=== PATIENT | male | born 1995 | race Caucasian/White ===

== ENCOUNTER 2017-02-18 12:15 | Emergency (ER) | payer OTHER ==
[~2017-02-18] VITALS: Ht 172.7 cm; Wt 69.1 kg
[2017-02-18] MEDS ORDERED: zoloft (12:30)
[2017-02-18 17:12] VITALS: BP 152/98
== END 2017-02-18 17:14 | disposition home or self-care (01) ==
LOC: M ED 12:15
DX: F43.0 Acute stress reaction (principal); Z79.899 Other long term (current) drug therapy

== ENCOUNTER 2017-02-26 05:44 | Emergency (ER) | payer OTHER ==
[~2017-02-26] VITALS: Ht 175.3 cm; Wt 77.0 kg
[~2017-02-26 05:44] MED LIST: zoloft
[2017-02-26 06:13] LABS: MEAN CORPUSCULAR HEMOGLOBIN 30.3 pg (27.0-33.0); MEAN CORPUSCULAR HGB CONC 34.2 g/dl (32.0-36.5); MEAN CORPUSCULAR VOLUME 88.6 fl (80.0-96.0); RED CELL DISTRIBUTION WIDTH 12.5 % (11.5-14.5)
[2017-02-26 06:31] LABS: ALBUMIN 4.3 GM/DL (3.2-5.2); ALKALINE PHOSPHATASE 81 U/L (45-117); ALT/SGPT 16 U/L (12-78); ANION GAP 9 MEQ/L (8-16); AST/SGOT 11 U/L (15-37); BILIRUBIN,DIRECT 0.2 MG/DL (0.0-0.2); BILIRUBIN,TOTAL 0.6 MG/DL (0.2-1.0); BLOOD UREA NITROGEN 9 MG/DL (7-18); CALCIUM LEVEL 8.9 MG/DL (8.5-10.1); CARBON DIOXIDE LEVEL 25 MEQ/L (21-32); CHLORIDE LEVEL 109 MEQ/L (98-107); CREATININE FOR GFR 0.96 MG/DL (0.70-1.30); GLUCOSE, FASTING 89 MG/DL (70-105); POTASSIUM SERUM 3.8 MEQ/L (3.5-5.1); SODIUM LEVEL 143 MEQ/L (136-145); TOTAL PROTEIN 7.6 GM/DL (6.4-8.2)
[2017-02-26 07:12] LABS: METHADONE URINE NEGATIVE (NEGATIVE)
[2017-02-26] MEDS ORDERED: NS 1,000 ML IV ONE (07:45)
--- NOTE | 2017-02-26 08:51 | ECGEPIP ---
Stationary ECG Study [facility] - ED Test Date: 2017-02-26 Pat Name: CORETTA ARIAS Department: Room: - Gender: M Report Writer: murray : 1995 Requested By: CORETTA Malcolm Order Number: [id number] Reading MD: Tara Adam Measurements Intervals [place] Rate: 100 P: 73 VT: 131 QRS: 69 QRSD: 112 T: 31 QT: 351 QTc: 453 Interpretive Statements SINUS TACHYCARDIA MODERATE INTRAVENTRICULAR CONDUCTION DELAY TALL T-WAVES, SUGGESTS HYPERKALEMIA, EARLY REPOLARIZATION NO PRIOR FOR COMPARISON Electronically Signed On 02-26-2017 8:51:16 EDT by Tara Adam
[2017-02-26] MEDS ORDERED: SODIUM BICARBONATE 8.4% INJ 50 ML SYRINGE IV STA (12:56)
[2017-02-26 14:01] VITALS: BP 112/72
--- NOTE | 2017-02-27 08:11 | ECGEPIP ---
Stationary ECG Study [facility] - ED Test Date: 2017-02-26 Pat Name: CORETTA ARIAS Department: Room: - Gender: M Janitor Custodian: rn : 1995 Requested By: KAIA Velázquez Order Number: [id number] Reading MD: Tara Adam Measurements Intervals [place] Rate: 75 P: 64 MA: 133 QRS: 57 QRSD: 112 T: 52 QT: 396 QTc: 444 Interpretive Statements SINUS RHYTHM MODERATE INTRAVENTRICULAR CONDUCTION DELAY PROBABLE EARLY REPOLARIZATION, CLINICAL CORRELATION DECREASED RATE 02/26/17 6:09 Electronically Signed On 02-27-2017 8:11:10 EDT by Tara Adam
--- NOTE | 2017-02-27 08:13 | ECGEPIP ---
Stationary ECG Study [facility] - ED Test Date: 2017-02-26 Pat Name: CORETTA ARIAS Department: Room: - Gender: M Plant Operator Helper: rn : 1995 Requested By: KAIA Velázquez Order Number: [id number] Reading MD: Tara Adam Measurements Intervals [place] Rate: 68 P: 70 CO: 134 QRS: 78 QRSD: 121 T: 59 QT: 408 QTc: 436 Interpretive Statements SINUS RHYTHM MODERATE INTRAVENTRICULAR CONDUCTION DELAY NSTTW ABNORMALITY SIMILAR 02/26/17 11:56 Electronically Signed On 02-27-2017 8:12:56 EDT by Tara Adam
== END 2017-02-26 14:25 | disposition home or self-care (01) ==
LOC: EDBD 05:44 → M ED 05:44
DX: R41.82 Altered mental status, unspecified (principal)
CPT/HCPCS: 36415; 80048; 80076; 80307; 84443; 85027; 93005; 93041; 94760; 96361; 96374; 99285; G0480

== ENCOUNTER 2017-06-07 03:06 | Inpatient (IN) | payer OTHER ==
[~2017-06-07] VITALS: Ht 172.7 cm; Wt 66.0 kg
[~2017-06-07 03:06] MED LIST changes: +UNRESOLVED CLARIFICATION ENTRY XX SCH
[2017-06-07 03:29] LABS: BASO # 0.1 10^3/uL (0.0-0.2); BASO % 0.4 % (0.0-1.0); EOS % 0.2 % (0.0-3.0); IMMATURE GRANULOCYTE % 0.3 % (0-0); LYMPH # 2.4 10^3/uL (1.5-6.5); LYMPH % 13.9 % (24.0-44.0); MEAN CORPUSCULAR HEMOGLOBIN 29.5 pg (27.0-33.0); MEAN CORPUSCULAR HGB CONC 33.8 g/dl (32.0-36.5); MEAN CORPUSCULAR VOLUME 87.2 fl (80.0-96.0); MONO # 0.9 10^3/uL (0.0-0.8); MONO % 5.1 % (0.0-5.0); NEUTROPHILS # 13.7 10^3/uL (1.8-7.7); NEUTROPHILS % 80.1 % (36.0-66.0); RED CELL DISTRIBUTION WIDTH 12.6 % (11.5-14.5); WHITE BLOOD COUNT 17.1 10^3/uL (4.0-10.0)
[2017-06-07 03:56] LABS: ALBUMIN/GLOBULIN RATIO 1.21 (1.00-1.93); ALKALINE PHOSPHATASE 77 U/L (45-117); ALT/SGPT 22 U/L (12-78); ANION GAP 9 MEQ/L (8-16); AST/SGOT 15 U/L (7-37); BILIRUBIN,DIRECT 0.2 MG/DL (0.0-0.2); BILIRUBIN,TOTAL 0.7 MG/DL (0.2-1.0); BLOOD UREA NITROGEN 8 MG/DL (7-18); CALCIUM LEVEL 9.1 MG/DL (8.5-10.1); CARBON DIOXIDE LEVEL 27 MEQ/L (21-32); CHLORIDE LEVEL 106 MEQ/L (98-107); CREATININE FOR GFR 0.94 MG/DL (0.70-1.30); GLUCOSE, FASTING 93 MG/DL (70-105); POTASSIUM SERUM 3.8 MEQ/L (3.5-5.1); SODIUM LEVEL 142 MEQ/L (136-145); TOTAL PROTEIN 7.3 GM/DL (6.4-8.2)
[2017-06-07 04:00] LABS: PLT CLUMPS? POS FLAG; POS COUNT POS FLAG; SUSPECT SAMPLE POS FLAG
[2017-06-07 04:05] LABS: METHADONE URINE NEGATIVE (NEGATIVE)
[2017-06-07] MEDS ORDERED: NS 1,000 ML IV ONE ×2 (04:30→07:45)
[2017-06-07] MEDS ORDERED: NICOTINE 21MG/24HR 1 EA TRANSDERMAL TD ONE (05:15)
[2017-06-07 07:57] LABS: MICROSCOPIC INDICATED? MAN YES (NO)
[2017-06-07 07:58] LABS: BACTERIA, URINE NONE SEEN; HYALINE CAST, URINE NONE SEEN /lpf (0-1); MICROSCOPIC EXAM PERFORMED; RBC, URINE 0-1 /hpf (0-3); SQUAMOUS EPITHELIAL CELL URINE NONE SEEN /hpf (SMALL AMT)
[2017-06-07 09:07] LABS: BASO # 0.1 10^3/uL (0.0-0.2); BASO % 0.5 % (0.0-1.0); EOS # 0.1 10^3/uL (0.0-0.50); EOS % 1.2 % (0.0-3.0); IMMATURE GRANULOCYTE % 0.3 % (0-0); LYMPH % 30.6 % (24.0-44.0); MEAN CORPUSCULAR HEMOGLOBIN 29.7 pg (27.0-33.0); MEAN CORPUSCULAR HGB CONC 33.7 g/dl (32.0-36.5); MEAN CORPUSCULAR VOLUME 88.3 fl (80.0-96.0); MONO # 0.8 10^3/uL (0.0-0.8); MONO % 7.8 % (0.0-5.0); NEUTROPHILS # 5.8 10^3/uL (1.8-7.7); NEUTROPHILS % 59.6 % (36.0-66.0); RED CELL DISTRIBUTION WIDTH 12.9 % (11.5-14.5); WHITE BLOOD COUNT 9.8 10^3/uL (4.0-10.0)
--- NOTE | 2017-06-07 09:22 | ECGEPIP ---
Stationary ECG Study [facility] - ED Test Date: 2017-06-07 Pat Name: CORETTA ARIAS Department: Room: - Gender: M Deportation Examiner: KAYLA : 1995 Requested By: CORETTA Malcolm Order Number: [id number] Reading MD: Ezequiel Jones Measurements Intervals [place] Rate: 90 P: 76 WA: 108 QRS: 71 QRSD: 107 T: 51 QT: 358 QTc: 438 Interpretive Statements SINUS RHYTHM WITH SHORT WA INTERVAL POSSIBLE LEFT ATRIAL ENLARGEMENT INCOMPLETE RIGHT BUNDLE BRANCH BLOCK BENIGN EARLY REPOLARIZATION SIMILAR TO 02/26/17 Electronically Signed On 06-07-2017 9:22:16 EST by Ezequiel Jones
[2017-06-07 09:24] LABS: PLT CLUMPS? POS FLAG; POS COUNT POS FLAG
[2017-06-07 09:25] LABS: ADD MORPHOLOGY? YES
[2017-06-07 09:26] LABS: PLATELET CLUMPS LARGE AMT
[2017-06-07] MEDS ORDERED: OLANZapine 5 MG TAB PO PRN (11:15)
[2017-06-07] MEDS ORDERED: MOM 30ML SUSPENSION UDC PO PRN (11:15)
[2017-06-07] MEDS ORDERED: MAALOX 30 ML SUSP *UDC PO PRN (11:15)
[2017-06-07 12:42] VITALS: BP 149/100
[2017-06-07 18:06] VITALS: BP 119/73
[2017-06-07] MEDS: QUEtiapine FUMARATE 25 MG TAB PO PRN (23:07)
[2017-06-08 06:44] VITALS: BP 130/78
[2017-06-08] MEDS: NICOTINE 21MG/24HR 1 EA TRANSDERMAL TD SCH (08:04)
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
[2017-06-08] MEDS: ACETAMINOPHEN TAB 650MG DOSE (2X325MG) PO PRN ×2 (09:49→16:56)
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
[2017-06-08] MEDS: OLANZapine 5 MG TAB PO PRN (14:14)
[2017-06-08 18:00] VITALS: BP 138/71
[2017-06-08] MEDS: QUEtiapine FUMARATE 25 MG TAB PO PRN (22:05)
[2017-06-09 06:42] VITALS: BP 109/78
[2017-06-09] MEDS: OLANZapine 5 MG TAB PO PRN ×3 (08:33→21:14)
[2017-06-09] MEDS: ACETAMINOPHEN TAB 650MG DOSE (2X325MG) PO PRN (08:34)
[2017-06-09] MEDS: NICOTINE 21MG/24HR 1 EA TRANSDERMAL TD SCH (08:35)
[2017-06-09 18:00] VITALS: BP 122/74
--- NOTE | 2017-06-09 20:04 | MHIPNPDOC ---
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 He reports being dissatisfied with the and feels he will be leaving soon, possibly in Jul. He reports "lots of stressors" contributing to his depression and uses drugs and OTC cough syrup as a coping tool. He states he drinks Robitussin in order to dissociate and to prevent himself from committing suicide. Last night, after consuming 2 bottles of cough syrup pt says he spent hours outside building a snowman, but came in after he became concerned he might develop hypothermia. Pt says he then sat staring at some knives before picking one up and contemplating killing himself with it. He instead called 911 and requested to be brought to the ER. Stressors include recent (one month ago) of his grandfather in [place] and being unable to visit him before he . He also broke up with his GF about 2 months ago. Pt says he has been isolating self because he feels shame at letting others down, and also feels he pushed his GF away, saying "I know I was toxic to her." He is prescribed Prozac by the clinic but does not always take it as prescribed. He has been abusing cough syrup and other drugs since around Aug 2016. Pt denies any admissions to psych unit. Denies attempting suicide other goodrich taking large amounts of cough syrup in order to not deal with his feelings. Pt remains suicidal at this time, unable to CFS, saying he continues to have those thoughts and is not sure what would happen to him if he doesn't control the thoughts with drugs.P VITAL SIGNS: See below. NEW TEST RESULTS: . CURRENT MEDICATIONS: See below. MENTAL STATUS EXAMINATION: Patient is a 12-year old male, who is alert, mildly cooperative, dressed in hospital clothes, sleepy, laying in bed, with poor eye contact Speech: Is poor (patient is very sleepy) Language skills are limited at this time. Thought processes including: Intact. Thought content: Focused on his medications Abstract reasoning, and computation: Not assessed at this time. Description of associations: Fair. Description of abnormal or psychotic thoughts: Denies SI/Hi, A/V hallucinations. Judgment: Limited. Insight: Limited. Orientation: Not assessed at this time. Patient is half asleep. Recent and remote memory: Not assessed at this time. Attention span and concentration: Poor. Patient is half asleep Language: Poor. Patient is half asleep. Fund of knowledge: Not assessed at this time. Patient is half asleep" Mood: "I slept better. My depression is 5/10" Affect: Coongruent with mood. DIAGNOSES: 1. Unspecified Bipolar D/O. 2. Drug induced mood d/o. 3. Polysubstance use d/o. ASSESSMENT:Patient is extremely sleepy, laying on his bed, possibly because he had not slept in the previous days. Will f/u/ MANAGEMENT PLAN: Will continue with the same meds. TIME SPENT: 20 minutes. Vital Signs Vital Signs Date Time Temp Pulse Resp B/P (MAP) Pulse Ox O2 Delivery O2 Flow Rate FiO2 06/09/17 18:00 97.5 64 16 122/74 (90) 06/09/17 06:42 Room Air 06/07/17 12:42 98 Current Medications Current Medications Acetaminophen (Tylenol Tab) 650 mg Q6HP PRN PO HEADACHE or DISCOMFORT Last administered on 06/09/17 08:34; Start 06/07/17 at 11:15; Stop 07/07/17 at 11 :14 Al Hydrox/Mg Hydrox/Simethicone (Mylanta) 30 ml Q4HP PRN PO HEARTBURN/ INDIGESTION; Start 06/07/17 at 11:15; Stop 07/07/17 at 11:14 Magnesium Hydroxide (Milk Of Magnesia) 30 ml DAILYPRN PRN PO CONSTIPATION; Start 06/07/17 at 11:15; Stop 07/07/17 at 11:14 Miscellaneous (Unresolved Clarification Entry) SEE LABEL COMMENTS UNRESOLVED XX ; Start 06/07/17 at 00:01; Stop 06/07/17 at 17:27; Status DC Nicotine (Nicoderm Cq 21mg) 1 patch DAILY TD Last administered on 06/09/17 08 :35; Start 06/08/17 at 09:00; Stop 07/08/17 at 08:59 Olanzapine (ZyPREXA) 5 mg Q4HP PRN PO ANXIETY/AGITATION; Start 06/07/17 at 11: 15; Stop 06/08/17 at 14:07; Status DC Olanzapine (ZyPREXA) 5 mg Q6HP PRN PO ANXIETY/AGITATION Last administered on 15:03; Start 06/08/17 at 14:15; Stop 07/07/17 at 11:14 Quetiapine Fumarate (SEROquel) 75 mg QHSP PRN PO INSOMNIA Last administered on 06/08/17 22:05; Start 06/07/17 at 11:15; Stop 07/07/17 at 11:14 Allergies Coded Allergies: No Known Allergies (Unverified , 06/07/17) URMILA ARRIOLA MD Jun 09, 2017 20:04
[2017-06-09] MEDS: QUEtiapine FUMARATE 25 MG TAB PO PRN (22:02)
[2017-06-10 06:44] VITALS: BP 115/65
[2017-06-10] MEDS: OLANZapine 5 MG TAB PO PRN ×2 (07:55→14:40)
[2017-06-10] MEDS: NICOTINE 21MG/24HR 1 EA TRANSDERMAL TD SCH (07:56)
[2017-06-10] MEDS ORDERED: INFLUENZA QUADRIVALENT PF VACCINE 0.5ML SYRINGE (90686) IM ONE (09:00)
[2017-06-10] MEDS: ACETAMINOPHEN TAB 650MG DOSE (2X325MG) PO PRN ×2 (12:06→17:12)
--- NOTE | 2017-06-10 12:06 | MHIPNPDOC ---
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 He reports "lots of stressors" contributing to his depression and uses drugs and OTC cough syrup as a coping tool. He states he drinks Robitussin in order to dissociate and to prevent himself from committing suicide. Last night, after consuming 2 bottles of cough syrup pt says he spent hours outside building a snowman, but came in after he became concerned he might develop hypothermia. Pt says he then sat staring at some knives before picking one up and contemplating killing himself with it. He instead called 911 and requested to be brought to the ER. Stressors include recent (one month ago) of his grandfather in [place] and being unable to visit him before he . He also broke up with his GF about 2 months ago. Pt says he has been isolating self because he feels shame at letting others down, and also feels he pushed his GF away, saying "I know I was toxic to her." He is prescribed Prozac by the clinic but does not always take it as prescribed. He has been abusing cough syrup and other drugs since around Aug 2016. Pt denies any admissions to psych unit. Denies attempting suicide other goodrich taking large amounts of cough syrup in order to not deal with his feelings. Pt remains suicidal at this time, unable to CFS, saying he continues to have those thoughts and is not sure what would happen to him if he doesn't control the thoughts with drugs.P VITAL SIGNS: See below. NEW TEST RESULTS: Acetaminophen (Tylenol Tab) 650 mg Q6HP PRN PO HEADACHE or DISCOMFORT Last administered on 06/09/17t 08:34; Start 06/07/17 at 11:15; Stop 07/07/17 at 11:14 Al Hydrox/Mg Hydrox/Simethicone (Mylanta) 30 ml Q4HP PRN PO HEARTBURN/ INDIGESTION; Start 06/07/17 at 11:15; Stop 07/07/17 at 11:14 Magnesium Hydroxide (Milk Of Magnesia) 30 ml DAILYPRN PRN PO CONSTIPATION; Start 06/07/17 at 11:15; Stop 07/07/17 at 11:14 Miscellaneous (Unresolved Clarification Entry) SEE LABEL COMMENTS UNRESOLVED XX ; Start 06/07/17 at 00:01; Stop 06/07/17 at 17:27; Status DC Nicotine (Nicoderm Cq 21mg) 1 patch DAILY TD Last administered on 06/10/17 07 :56; Start 06/08/17 at 09:00; Stop 07/08/17 at 08:59 Olanzapine (ZyPREXA) 5 mg Q4HP PRN PO ANXIETY/AGITATION; Start 06/07/17 at 11: 15; Stop 06/08/17 at 14:07; Status DC Olanzapine (ZyPREXA) 5 mg Q6HP PRN PO ANXIETY/AGITATION Last administered on 07:55; Start 06/08/17 at 14:15; Stop 07/07/17 at 11:14 Quetiapine Fumarate (SEROquel) 75 mg QHSP PRN PO INSOMNIA Last administered on 06/09/17 22:02; Start 06/07/17 at 11:15; Stop 07/07/17 at 11:14 Allergies Coded Allergies: No Known Allergies (Unverified , 06/07/17) CURRENT MEDICATIONS: See below. MENTAL STATUS EXAMINATION: Patient is a 12-year old male, who is alert, mildly cooperative, dressed in hospital clothes, with fair eye contact, clean, fairly groomed Speech: Pressured, rapid Language skills are fair Thought processes including: Intact. Thought content: On how to leave the Abstract reasoning, and computation: Fair Description of associations: Good Description of abnormal or psychotic thoughts: Denies SI/Hi, A/V hallucinations , denies thought delusions Judgment: Limited. Insight: Limited. Orientation: oriented x 3 Recent and remote memory: Good Attention span and concentration: Good Language: Good Fund of knowledge: Fair Mood: "I feel better" Affect: Congruent with mood. DIAGNOSES: 1. Drug induced mood disorder 2. R/O Bipolar disorder 3. Polysubstance use d/o. ASSESSMENT: Patient minimizes his drug problem, he tries to justify and rationalize it. He says he will be able to quit, he tries to talk about the physiological effects of addiction and he says " I'm so smart, I don't want to loose my brain cells". He becomes almost euphoric after he starts talking, his speech becomes more pressured and more rapid. He says he could not sleep with the 75 mgs. of Seroquel he took last night. I have increased it to 150 mgs. but I will decrease it again in a couple of days. The patient has altered mood and sleep because he has used cough syrup, two bottles. MANAGEMENT PLAN: Will increase Seroquel to 150 mgs. at bed time, hoping to decrease it in a couple of days, once this substance induced ana maría improves. TIME SPENT: 20 minutes. Vital Signs Vital Signs Date Time Temp Pulse Resp B/P (MAP) Pulse Ox O2 Delivery O2 Flow Rate FiO2 06/10/17 06:44 97.0 72 16 115/65 (82) Room Air 06/07/17 12:42 98 Current Medications Current Medications Acetaminophen (Tylenol Tab) 650 mg Q6HP PRN PO HEADACHE or DISCOMFORT Last administered on 06/09/17 08:34; Start 06/07/17 at 11:15; Stop 07/07/17 at 11 :14 Al Hydrox/Mg Hydrox/Simethicone (Mylanta) 30 ml Q4HP PRN PO HEARTBURN/ INDIGESTION; Start 06/07/17 at 11:15; Stop 07/07/17 at 11:14 Magnesium Hydroxide (Milk Of Magnesia) 30 ml DAILYPRN PRN PO CONSTIPATION; Start 06/07/17 at 11:15; Stop 07/07/17 at 11:14 Miscellaneous (Unresolved Clarification Entry) SEE LABEL COMMENTS UNRESOLVED XX ; Start 06/07/17 at 00:01; Stop 06/07/17 at 17:27; Status DC Nicotine (Nicoderm Cq 21mg) 1 patch DAILY TD Last administered on 06/10/17 07 :56; Start 06/08/17 at 09:00; Stop 07/08/17 at 08:59 Olanzapine (ZyPREXA) 5 mg Q4HP PRN PO ANXIETY/AGITATION; Start 06/07/17 at 11: 15; Stop 06/08/17 at 14:07; Status DC Olanzapine (ZyPREXA) 5 mg Q6HP PRN PO ANXIETY/AGITATION Last administered on 07:55; Start 06/08/17 at 14:15; Stop 07/07/17 at 11:14 Quetiapine Fumarate (SEROquel) 75 mg QHSP PRN PO INSOMNIA Last administered on 06/09/17 22:02; Start 06/07/17 at 11:15; Stop 07/07/17 at 11:14 Allergies Coded Allergies: No Known Allergies (Unverified , 06/07/17) URMILA ARRIOLA MD Jun 10, 2017 12:06
[2017-06-10] MEDS: QUEtiapine FUMARATE 50 MG TAB PO PRN (20:06)
[2017-06-10 22:08] VITALS: BP 135/78
[2017-06-11 06:17] VITALS: BP 105/55
[2017-06-11] MEDS: NICOTINE 21MG/24HR 1 EA TRANSDERMAL TD SCH (08:08)
[2017-06-11] MEDS: ACETAMINOPHEN TAB 650MG DOSE (2X325MG) PO PRN (12:40)
[2017-06-11] MEDS: OLANZapine 5 MG TAB PO PRN (15:07)
[2017-06-11 18:00] VITALS: BP 132/73
[2017-06-11] MEDS: QUEtiapine FUMARATE 50 MG TAB PO PRN (20:56)
[2017-06-12 06:52] VITALS: BP 139/63
[2017-06-12] MEDS: NICOTINE 21MG/24HR 1 EA TRANSDERMAL TD SCH (08:26)
[2017-06-12] MEDS: OLANZapine 5 MG TAB PO PRN ×2 (11:39→19:07)
[2017-06-12] MEDS: ACETAMINOPHEN TAB 650MG DOSE (2X325MG) PO PRN (11:40)
[2017-06-12 18:00] VITALS: BP 120/60
[2017-06-12] MEDS: QUEtiapine FUMARATE 50 MG TAB PO PRN (20:42)
[2017-06-13 06:38] VITALS: BP 131/70
[2017-06-13] MEDS: NICOTINE 21MG/24HR 1 EA TRANSDERMAL TD SCH (08:11)
[2017-06-13] MEDS: OLANZapine 5 MG TAB PO PRN ×2 (13:47→17:49)
[2017-06-13] MEDS: ACETAMINOPHEN TAB 650MG DOSE (2X325MG) PO PRN (16:10)
[2017-06-13 18:00] VITALS: BP 119/67
--- NOTE | 2017-06-13 19:46 | MHIPNPDOC ---
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 He reports being dissatisfied with the and feels he will be leaving soon, possibly in Jul. He reports "lots of stressors" contributing to his depression and uses drugs and OTC cough syrup as a coping tool. He states he drinks Robitussin in order to dissociate and to prevent himself from committing suicide. Last night, after consuming 2 bottles of cough syrup pt says he spent hours outside building a snowman, but came in after he became concerned he might develop hypothermia. Pt says he then sat staring at some knives before picking one up and contemplating killing himself with it. He instead called 911 and requested to be brought to the ER. Stressors include recent (one month ago) of his grandfather in [place] and being unable to visit him before he . He also broke up with his GF about 2 months ago. Pt says he has been isolating self because he feels shame at letting others down, and also feels he pushed his GF away, saying "I know I was toxic to her." He is prescribed Prozac by the clinic but does not always take it as prescribed. He has been abusing cough syrup and other drugs since around Aug 2016. Pt denies any admissions to psych unit. Denies attempting suicide other goodrich taking large amounts of cough syrup in order to not deal with his feelings. Pt remains suicidal at this time, unable to CFS, saying he continues to have those thoughts and is not sure what would happen to him if he doesn't control the thoughts with drugs.P VITAL SIGNS: See below. NEW TEST RESULTS: See below CURRENT MEDICATIONS: See below. MENTAL STATUS EXAMINATION: Patient is a 12-year old male, who is alert, mildly cooperative, dressed in hospital clothes, with fair eye contact, clean, fairly groomed Speech: Continues to be pressured and rapid but less than yesterday Language skills are fair Thought processes including: Linear, rational Thought content: On how to leave the Abstract reasoning, and computation: Fair Description of associations: Good Description of abnormal or psychotic thoughts: Denies SI/Hi, A/V hallucinations , denies thought delusions Judgment: Limited. Insight: Limited. Orientation: oriented x 3 Recent and remote memory: Good Attention span and concentration: Good Language: Good Fund of knowledge: Fair Mood: Irritable Affect: Irritable DIAGNOSES: 1. Drug induced mood disorder 2. R/O Bipolar disorder 3. Polysubstance use d/o. ASSESSMENT: Patient continues to minimize his drug problem, he stated he has being irritable during the day and he ignored the cause. I explained that it could be related to his drug use and he seemed to be surprised. I started him on Abilify 2.5 mg twice a day, he continues on Seroquel 150 mg by mouth at night and Zyprexa when necessary. MANAGEMENT PLAN: Will continue the same treatment plan TIME SPENT: 20 minutes. Vital Signs Vital Signs Vital Signs Date Time Temp Pulse Resp B/P (MAP) Pulse Ox O2 Delivery O2 Flow Rate FiO2 06/13/17 06:38 97.6 66 18 131/70 (90) 06/12/17 06:52 Room Air 06/07/17 12:42 98 Current Medications Current Medications Acetaminophen (Tylenol Tab) 650 mg Q6HP PRN PO HEADACHE or DISCOMFORT Last administered on 06/13/17 16:10; Start 06/07/17 at 11:15; Stop 07/07/17 at 11: 14 Al Hydrox/Mg Hydrox/Simethicone (Mylanta) 30 ml Q4HP PRN PO HEARTBURN/ INDIGESTION; Start 06/07/17 at 11:15; Stop 07/07/17 at 11:14 Aripiprazole (AbiLIFY) 2.5 mg BID PO Last administered on 06/13/17 08:10; Start 06/11/17 at 21:00; Stop 07/11/17 at 20:59 Magnesium Hydroxide (Milk Of Magnesia) 30 ml DAILYPRN PRN PO CONSTIPATION; Start 06/07/17 at 11:15; Stop 07/07/17 at 11:14 Miscellaneous (Unresolved Clarification Entry) SEE LABEL COMMENTS UNRESOLVED XX ; Start 06/07/17 at 00:01; Stop 06/07/17 at 17:27; Status DC Nicotine (Nicoderm Cq 21mg) 1 patch DAILY TD Last administered on 06/13/17 08: 11; Start 06/08/17 at 09:00; Stop 07/08/17 at 08:59 Olanzapine (ZyPREXA) 5 mg Q4HP PRN PO ANXIETY/AGITATION; Start 06/07/17 at 11: 15; Stop 06/08/17 at 14:07; Status DC Olanzapine (ZyPREXA) 5 mg Q4HP PRN PO ANXIETY/AGITATION Last administered on 17:49; Start 06/10/17 at 12:30; Stop 07/07/17 at 11:14 Olanzapine (ZyPREXA) 5 mg Q6HP PRN PO ANXIETY/AGITATION Last administered on 07:55; Start 06/08/17 at 14:15; Stop 06/10/17 at 12:20; Status DC Quetiapine Fumarate (SEROquel) 75 mg QHSP PRN PO INSOMNIA Last administered on 06/09/17 22:02; Start 06/07/17 at 11:15; Stop 06/10/17 at 12:10; Status DC Quetiapine Fumarate (SEROquel) 150 mg QHSP PRN PO INSOMNIA Last administered on 06/12/17 20:42; Start 06/10/17 at 12:15; Stop 07/10/17 at 12:14 Allergies Coded Allergies: No Known Allergies (Unverified , 06/07/17) URMILA ARRIOLA MD Jun 13, 2017 19:46
[2017-06-13] MEDS: QUEtiapine FUMARATE 50 MG TAB PO PRN (20:29)
[2017-06-14 07:00] VITALS: BP 116/72
[2017-06-14] MEDS: NICOTINE 21MG/24HR 1 EA TRANSDERMAL TD SCH (08:24)
[2017-06-14] MEDS: OLANZapine 5 MG TAB PO PRN (09:55)
[2017-06-14] MEDS ORDERED: ARIP5TA PO (10:34)
[2017-06-14] MEDS ORDERED: QUET5TAB PO (10:34)
[2017-06-14] MEDS ORDERED: ZYPR5TAB2 PO (10:50)
[2017-06-14] MEDS ORDERED: ABIL10TA9 PO (10:54)
--- NOTE | 2017-06-21 15:40 | MHDSPDOC ---
[facility] Discharge Summary Discharge Summary DATE OF ADMISSION: Jun 07, 2017 at 11:05 DATE OF DISCHARGE: Jun 14, 2017 at 12:10 DISCHARGE DIAGNOSES: 1. Bipolar Disorder 2. 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 He reports being dissatisfied with the and feels he will be leaving soon, possibly in Jul. He reports "lots of stressors" contributing to his depression and uses drugs and OTC cough syrup as a coping tool. He states he drinks Robitussin in order to dissociate and to prevent himself from committing suicide. Last night, after consuming 2 bottles of cough syrup pt says he spent hours outside building a snowman, but came in after he became concerned he might develop hypothermia. Pt says he then sat staring at some knives before picking one up and contemplating killing himself with it. He instead called 911 and requested to be brought to the ER. Stressors include recent (one month ago) of his grandfather in [place] and being unable to visit him before he . He also broke up with his GF about 2 months ago. Pt says he has been isolating self because he feels shame at letting others down, and also feels he pushed his GF away, saying "I know I was toxic to her." He is prescribed Prozac by the clinic but does not always take it as prescribed. He has been abusing cough syrup and other drugs since around Aug 2016. Pt denies any admissions to psych unit. Denies attempting suicide other goodrich taking large amounts of cough syrup in order to not deal with his feelings. Pt remains suicidal at this time, unable to CFS, saying he continues to have those thoughts and is not sure what would happen to him if he doesn't control the thoughts with drugs. CONSULTANTS INVOLVED: None TREATMENT AND PROGRESS ON THE UNIT :When patient was initially evaluated, had psychomotor agitation, couldn't sit still, had pressured and rapid speech, had racing thoughts and had grandiose ideation. Many times he described himself as being very smart, smart than others, very bright. The sencond day he spent sleeping most of the day because he said he hadn't slept the previous days because he had been taking the cough syrup but he also mentioned he always had decreased need for sleep. 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 On his very first day at [facility] he talked to me about the mechanism of action of SSRI's. he had a good response to medications, he was started on Abilify and he used Olanzapine PRN for anxiety or agitation and Seroquel for sleep. Her had been on Zoloft but I decided to put it on hold because he was manic, possibly due to his substance abuse, but the patient described a long standing history of symptoms that were compatible with bipolar disorder. HOSPITAL COURSE: As above DISCHARGE ASSESSMENT: Patient was in no danger to self or others, he was not suicidal, not homicidal and not psychotic MENTAL STATUS EXAMINATION ON DISCHARGE: Patient is a 21-year old male, who is alert, cooperative, calmer, dressed in hospital clothes, with good eye contact, fair hygiene and grooming. Speech is Normal in rate, tone and volume. Language skills are Normal. Thought processes including: Intact. Thought content: Focused on getting out of the , going back to college. Abstract reasoning, and computation: Fair. Description of associations: Good. Description of abnormal or psychotic thoughts: Denies SI, HI, A/V hallucinations , thought delusions. Judgment: Improved. Insight: Improved. Orientation to Oriented x 3. Recent and remote memory: Intact. Attention span and concentration: Good. Language: Normal. Fund of knowledge: Good. Mood: Euthymic. Affect: Euthymic. MEDICATIONS ON DISCHARGE: Aripiprazole (Abilify) 10 Mg Tab, 10 MG PO DAILY for BIPOLAR DISORDER, #10 hE CAN TAKE 10 MGS. PO QHS OR HALF TABLET TWICE A DAY [zoloft] , DAILY, (Reported) Scheduled PRN Olanzapine (Zyprexa) 5 Mg Tab, 5 MG PO PRN PRN for ANXIETY/AGITATION, #14 Quetiapine Fumerate (Quetiapine Fumarate) 50 Mg Tab, 150 MG PO QHSP PRN for INSOMNIA, #15 PLAN/FOLLOWUP ARRANGEMENTS: * Medical * Medical Follow Up [facility] * Established With This Provider Yes * Therapist CPT HAILEY * Date Jun 25, 2017 * Time 09:10 * Follow Up Care Education Label * Mental Health Appt 1 * Mental Health [facility] * Convention Services Director Maru * * Additional information MARIANELA,KIAH [id number] DENOYELLES, [id number]@1100 DENOYELLES, [id number]@1430 DENOYELLES, [id number]@1000 DENOYELLES, [id number]@1100 Follow Up Care Education Label * Mental Health Appt 2 * Mental Health [facility] * Established With This Provider Yes * Additional information Follow up at [facility] post discharge group 06/15@9-11; 06/16@900-1100; 06/17@900-100 Follow Up Care Education Label * Chemical Dependency Appt1 * Mental Health [facility] * Educational/Vocational/Recreational Program smoking cessation class * Date Jul 01, 2017 * Time 18:00 * * Additional information Classes offered the of every month The amount of time spent in the coordination of care for this patient was approximately 30 minutes. Medications Scheduled Aripiprazole (Abilify) 10 Mg Tab, 10 MG PO DAILY for BIPOLAR DISORDER, #10 hE CAN TAKE 10 MGS. PO QHS OR HALF TABLET TWICE A DAY [zoloft] , DAILY, (Reported) Scheduled PRN Olanzapine (Zyprexa) 5 Mg Tab, 5 MG PO PRN PRN for ANXIETY/AGITATION, #14 Quetiapine Fumerate (Quetiapine Fumarate) 50 Mg Tab, 150 MG PO QHSP PRN for INSOMNIA, #15 Allergies Coded Allergies: No Known Allergies (Unverified , 06/07/17) URMILA ARRIOLA MD Jun 21, 2017 15:40
== END 2017-06-14 12:10 | disposition home or self-care (01) | DRG 885 ==
LOC: EDBD 03:06 → M ED 03:06 → M ED INP 11:05 → M PSY 12:30
PROVIDERS: ADMIT Psychiatry & Neurology Psychiatry; ATTEND Psychiatry & Neurology Psychiatry
DX: F31.9 Bipolar disorder, unspecified (principal); F11.90 Opioid use, unspecified, uncomplicated; F41.9 Anxiety disorder, unspecified; F17.200 Nicotine dependence, unspecified, uncomplicated; Z79.899 Other long term (current) drug therapy

== ENCOUNTER 2017-06-21 09:16 | Inpatient (IN) | payer OTHER ==
[~2017-06-21] VITALS: Ht 180.3 cm; Wt 69.0 kg
[~2017-06-21 09:16] MED LIST changes: +ABIL10TA9 PO; +ARIP5TA PO; +QUET5TAB PO; -UNRESOLVED CLARIFICATION ENTRY XX SCH; +ZYPR5TAB2 PO
[2017-06-21 10:06] LABS: MEAN CORPUSCULAR HEMOGLOBIN 29.8 pg (27.0-33.0); MEAN CORPUSCULAR HGB CONC 33.6 g/dl (32.0-36.5); MEAN CORPUSCULAR VOLUME 88.7 fl (80.0-96.0); RED CELL DISTRIBUTION WIDTH 13.4 % (11.5-14.5); WHITE BLOOD COUNT 7.9 10^3/uL (4.0-10.0)
[2017-06-21 10:26] LABS: METHADONE URINE NEGATIVE (NEGATIVE)
[2017-06-21 10:36] LABS: PLT DIST POS FLAG; POS COUNT POS FLAG; SUSPECT SAMPLE POS FLAG
[2017-06-21 10:39] LABS: ALBUMIN 3.9 GM/DL (3.2-5.2); ALBUMIN/GLOBULIN RATIO 1.11 (1.00-1.93); ALKALINE PHOSPHATASE 81 U/L (45-117); ALT/SGPT 97 U/L (12-78); ANION GAP 8 MEQ/L (8-16); AST/SGOT 50 U/L (7-37); BILIRUBIN,DIRECT < 0.1 MG/DL (0.0-0.2); BILIRUBIN,TOTAL 0.4 MG/DL (0.2-1.0); BLOOD UREA NITROGEN 10 MG/DL (7-18); CALCIUM LEVEL 8.9 MG/DL (8.5-10.1); CARBON DIOXIDE LEVEL 28 MEQ/L (21-32); CHLORIDE LEVEL 106 MEQ/L (98-107); CREATININE FOR GFR 0.88 MG/DL (0.70-1.30); GLUCOSE, FASTING 94 MG/DL (70-105); POTASSIUM SERUM 4.1 MEQ/L (3.5-5.1); SODIUM LEVEL 142 MEQ/L (136-145); TOTAL PROTEIN 7.4 GM/DL (6.4-8.2)
[2017-06-21] MEDS ORDERED: NICOTINE 21MG/24HR 1 EA TRANSDERMAL TD ONE (16:15)
[2017-06-21] MEDS ORDERED: ABIL10TA9 PO (16:47)
[2017-06-21] MEDS ORDERED: QUET5TAB PO (16:52)
[2017-06-21] MEDS ORDERED: ZYPR5TAB2 PO (16:52)
[2017-06-21 17:50] VITALS: BP 149/87
[2017-06-21] MEDS ORDERED: MOM 30ML SUSPENSION UDC PO PRN (19:30)
[2017-06-21] MEDS ORDERED: traZODone 50 MG TAB PO PRN (19:30)
[2017-06-21] MEDS ORDERED: MAALOX 30 ML SUSP *UDC PO PRN (19:30)
[2017-06-21] MEDS: OLANZapine 5 MG TAB PO PRN (20:02)
[2017-06-21] MEDS ORDERED: QUEtiapine FUMARATE 50 MG TAB PO SCH (21:00)
[2017-06-21] MEDS: IBUPROFEN 400 MG TAB PO PRN (22:26)
[2017-06-22] MEDS: OLANZapine 5 MG TAB PO PRN ×2 (02:43→11:16)
[2017-06-22 06:42] VITALS: BP 121/59
[2017-06-22] MEDS: ARIPiprazole 10 MG TAB PO SCH (08:23)
[2017-06-22] MEDS: NICOTINE 21MG/24HR 1 EA TRANSDERMAL TD SCH (08:23)
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
[2017-06-22] MEDS: IBUPROFEN 400 MG TAB PO PRN ×2 (15:19→21:16)
[2017-06-22 18:27] VITALS: BP 144/78
[2017-06-22] MEDS ORDERED: QUEtiapine FUMARATE 200 MG TAB PO SCH (21:00)
--- NOTE | 2017-06-23 01:23 | HPE ---
DATE OF ADMISSION: 06/21/2017 HISTORY OF PRESENT ILLNESS: Please refer to psychiatric history and evaluation for further details on this admission. This examination and history is intended for medical issues, which may need treatment, followup or consult on this 21-year-old male. ALLERGIES: No known allergies. SOCIAL HISTORY: He is single. He lives at [place]. He is an active duty soldier. He smokes one pack of cigarettes per day. Denies alcohol. Does utilize Robitussin cough syrup. He has used cocaine and marijuana in the past. HOME MEDICATIONS: - Abilify 10 mg by mouth every morning - Zyprexa 5 mg every 4 hours as needed for anxiety - Seroquel 150 mg by mouth nightly as needed for sleep LABORATORY STUDIES: CBC was normal. Electrolytes were normal. BUN was 10, creatinine 0.88. AST was elevated at 50. ALT was elevated at 97. Toxicology screen was negative. Patient states he has not drank alcohol. REVIEW OF SYSTEMS: Done was unremarkable. 11-system review was completed. Patient had no complaints. PHYSICAL EXAMINATION: 21-year-old cooperative male in no acute distress. Height 71 inches, weight 69 kg, body mass index (BMI) 21.2. Blood pressure 121/59, pulse 78, respirations 14, temperature 98.1. Patient is alert and oriented times three. Cornea and sclerae clear. Conjunctivae were normal. No facial asymmetry. Pharynx, tongue and gums pink and moist. Tongue is midline. Neck is supple without lymphadenopathy. No thyromegaly, no goiter. Carotids 2+ without bruit. Chest clear to auscultation without wheeze or retraction. Heart is regular without murmur or gallop. Abdomen is soft, nontender. No masses, pulsations or bruits. No organomegaly. Bowel sounds are positive. Genitourinary/rectal: Not done. Extremities show equal strength, full range of motion. No cyanosis, clubbing or edema. Peripheral pulses equal and palpable bilaterally. Skin is warm and dry. IMPRESSION/PLAN: 1. Psychiatric plan per psychiatry. 2. AST/ALT slightly elevated. Will recheck liver profile in the morning. EKG 06/07/2017: Sinus rhythm. No acute medical issues. Recheck liver profile. Will check with pharmacy on patient's home medications to see if any of them could cause the slight elevation of the liver enzymes.
[2017-06-23] MEDS: OLANZapine 5 MG TAB PO PRN ×4 (02:04→18:52)
[2017-06-23 06:48] VITALS: BP 127/66
[2017-06-23 07:38] LABS: ALBUMIN 3.6 GM/DL (3.2-5.2); ALBUMIN/GLOBULIN RATIO 1.06 (1.00-1.93); BILIRUBIN,DIRECT 0.1 MG/DL (0.0-0.2); BILIRUBIN,TOTAL 0.5 MG/DL (0.2-1.0)
[2017-06-23] MEDS: NICOTINE 21MG/24HR 1 EA TRANSDERMAL TD SCH (08:01)
[2017-06-23] MEDS: ARIPiprazole 10 MG TAB PO SCH (08:01)
[2017-06-23] MEDS: IBUPROFEN 400 MG TAB PO PRN ×2 (09:18→18:52)
--- NOTE | 2017-06-23 13:23 | MHIPNPDOC ---
[facility] Progress Note Progress Note DATE OF SERVICE: 06/23/17 HISTORY: "I had thoughts of killing myself" History of Present Illness HISTORY OF THE PRESENT ILLNESS: As per ED note: "Pt. states he has been feeling depressed and anxious. He reports this morning he had increased anxiety which ended up in a panic attack. He also states that he is experiencing SI. He states he had thoughts of killing self by stabbing himself in the neck. He reports he has been in for about 1.5 years, is either being med boarded out or d/c due to continuous misconduct counseling. He reports he is very absent minded and that he often gets in trouble for misplacing and forgetting items and that because of this his ANAMARIA have not been tolerant of him. Pt. reports he recently he was only allowed two days leave after the of his grandfather so he was unable to go home for the . He reports this has contributed to his depression, stating he was very close to his grandfather.He is unable to contract for safety." VITAL SIGNS: See below. NEW TEST RESULTS: N/A CURRENT MEDICATIONS: See below. MENTAL STATUS EXAMINATION: Patient is a 21-year old male, who is alert, cooperative, dressed in hospital clothes,. Speech: Is Less pressured. Language skills are Good. Thought processes including: Coherent. Thought content: Focused on his dreams, how vivid, how weird they are. he thinks he will be able to live without taking his medications but we already had talked about him needing his meds. because I believe he has bipolar d/o. Abstract reasoning, and computation: Not assessed at this time. Description of associations: Good Description of abnormal or psychotic thoughts: Denies SI, HI, A/V hallucinations and thought delusions Judgment: Limited Insight: Limited Orientation: oriented x 3 Recent and remote memory: Intact Attention span and concentration: Good Language: Normal Fund of knowledge: Fair Mood: slightly irritable/anxious. Affect: Congruent with mood DIAGNOSES: 1. Bipolar disorder 2. Substance use disorder ASSESSMENT: Patient continues to be ressitant to treatment, he is not insightful and he continues to display poor judgement. MANAGEMENT PLAN: Will continue with the same treatment plan but will add Rozerem 8 mgs. for sleep. TIME SPENT: 20 minutes. Vital Signs Vital Signs Date Time Temp Pulse Resp B/P (MAP) Pulse Ox O2 Delivery O2 Flow Rate FiO2 06/23/17 06:48 97.7 65 14 127/66 (86) Room Air 06/21/17 17:42 100 Laboratory Data 24H Labs Laboratory Tests 2 06/23/17 06:54: Aspartate Amino Transf (AST/SGOT) 47H, Alanine Aminotransferase (ALT/SGPT) 99H, Alkaline Phosphatase 71, Total Bilirubin 0.5, Direct Bilirubin 0.1, Total Protein 7.0, Albumin 3.6, Albumin/Globulin Ratio 1.06 Current Medications Current Medications Al Hydrox/Mg Hydrox/Simethicone (Mylanta) 30 ml Q4HP PRN PO HEARTBURN/ INDIGESTION; Start 06/21/17 at 19:30; Stop 07/21/17 at 19:29 Aripiprazole (AbiLIFY) 10 mg DAILY PO Last administered on 06/23/17 08:01; Start 06/22/17 at 09:00; Stop 07/22/17 at 08:59 Home Med (Med Rec Complete!) ASDIRECTED XX ; Start 06/21/17 at 17:00; Stop at 17:00; Status DC Ibuprofen (Advil) 400 mg Q6HP PRN PO PAIN Last administered on 06/23/17 09:18 ; Start 06/21/17 at 19:30; Stop 07/21/17 at 19:29 Magnesium Hydroxide (Milk Of Magnesia) 30 ml DAILYPRN PRN PO CONSTIPATION; Start 06/21/17 at 19:30; Stop 07/21/17 at 19:29 Nicotine (Nicoderm Cq 21mg) 1 patch DAILY TD Last administered on 06/23/17 08 :01; Start 06/22/17 at 09:00; Stop 07/22/17 at 08:59 Olanzapine (ZyPREXA) 5 mg Q4HP PRN PO ANXIETY/AGITATION Last administered on 09:18; Start 06/21/17 at 19:30; Stop 07/21/17 at 19:29 Quetiapine Fumarate (SEROquel) 150 mg QHS PO Last administered on 06/21/17 20 :02; Start 06/21/17 at 21:00; Stop 06/22/17 at 13:09; Status DC Quetiapine Fumarate (SEROquel) 200 mg QHS PO Last administered on 06/22/17 20 :27; Start 06/22/17 at 21:00; Stop 07/22/17 at 20:59 Trazodone HCl (Desyrel) 50 mg QHSP PRN PO INSOMNIA Last administered on 22:45; Start 06/21/17 at 19:30; Stop 06/22/17 at 13:10; Status DC Allergies Coded Allergies: No Known Allergies (Unverified , 06/07/17) URMILA ARRIOLA MD Jun 23, 2017 13:23
[2017-06-23 18:00] VITALS: BP 139/68
[2017-06-23] MEDS: RAMELTEON 8 MG TAB (ROZEREM) PO SCH (20:52)
[2017-06-24 07:02] VITALS: BP 113/58
[2017-06-24] MEDS: NICOTINE 21MG/24HR 1 EA TRANSDERMAL TD SCH (08:14)
[2017-06-24 08:23] LABS: ALBUMIN 3.5 GM/DL (3.2-5.2); ALBUMIN/GLOBULIN RATIO 1.09 (1.00-1.93); ALKALINE PHOSPHATASE 79 U/L (45-117); ALT/SGPT 96 U/L (12-78); ANION GAP 5 MEQ/L (8-16); AST/SGOT 40 U/L (7-37); BILIRUBIN,TOTAL 0.5 MG/DL (0.2-1.0); BLOOD UREA NITROGEN 12 MG/DL (7-18); CALCIUM LEVEL 8.5 MG/DL (8.5-10.1); CARBON DIOXIDE LEVEL 29 MEQ/L (21-32); CHLORIDE LEVEL 107 MEQ/L (98-107); CREATININE FOR GFR 0.83 MG/DL (0.70-1.30); GLUCOSE, FASTING 76 MG/DL (70-105); POTASSIUM SERUM 4.4 MEQ/L (3.5-5.1); SODIUM LEVEL 141 MEQ/L (136-145); TOTAL PROTEIN 6.7 GM/DL (6.4-8.2)
--- NOTE | 2017-06-24 11:59 | MHIPNPDOC ---
[facility] Progress Note Progress Note DATE OF SERVICE: 06/24/17 HISTORY: "I had thoughts of killing myself" History of Present Illness HISTORY OF THE PRESENT ILLNESS: As per ED note: "Pt. states he has been feeling depressed and anxious. He reports this morning he had increased anxiety which ended up in a panic attack. He also states that he is experiencing SI. He states he had thoughts of killing self by stabbing himself in the neck. He reports he has been in for about 1.5 years, is either being med boarded out or d/c due to continuous misconduct counseling. He reports he is very absent minded and that he often gets in trouble for misplacing and forgetting items and that because of this his A[place]IA have not been tolerant of him. Pt. reports he recently he was only allowed two days leave after the of his grandfather so he was unable to go home for the . He reports this has contributed to his depression, stating he was very close to his grandfather.He is unable to contract for safety." VITAL SIGNS: See below. NEW TEST RESULTS: N/A CURRENT MEDICATIONS: See below. MENTAL STATUS EXAMINATION: Patient is a 21-year old male, who is cooperative, alert, dressed in hospital clothes, good hygiene and fair grooming Speech: Is Less pressured, normal tone and normal volume Language skills are Good. Thought processes including: Intact Thought content: focused on having sleep problems, but says he feels better now. Abstract reasoning, and computation: Not assessed at this time. Description of associations: Good Description of abnormal or psychotic thoughts: Denies SI, HI, A/V hallucinations and thought delusions Judgment: Improving Insight: Improving Orientation: oriented x 3 Recent and remote memory: Intact Attention span and concentration: Good Language: Normal Fund of knowledge: Fair Mood: Euthymic Affect: Euthymic DIAGNOSES: 1. Bipolar disorder 2. Substance use disorder ASSESSMENT: Insight is improving, slowly. Will order a panel to evaluate STD's since he was active sexually and hasn't had protection. He says he was active with a girl he knew and he though she "was clean because she got tested often". He sayd he hasn't drank more than one bear in several months. I'm trying to see why is he having elevated LFT's. MANAGEMENT PLAN: Will continue with the same treatment plan. No medictions because he has LFT's. TIME SPENT: 20 minutes. Vital Signs Vital Signs Date Time Temp Pulse Resp B/P (MAP) Pulse Ox O2 Delivery O2 Flow Rate FiO2 06/24/17 07:02 97.4 82 16 113/58 (76) 06/23/17 06:48 Room Air 06/21/17 17:42 100 Laboratory Data 24H Labs Laboratory Tests 2 06/24/17 07:14: Anion Gap 5L, Blood Urea Nitrogen 12, Creatinine 0.83, Sodium Level 141, Potassium Level 4.4, Chloride Level 107, Carbon Dioxide Level 29, Calcium Level 8.5, Aspartate Amino Transf (AST/SGOT) 40H, Alanine Aminotransferase (ALT/SGPT) 96H, Alkaline Phosphatase 79, Total Bilirubin 0.5, Total Protein 6.7, Albumin 3.5, Albumin/Globulin Ratio 1.09 CBC/BMP Laboratory Tests 06/24/17 07:14 Calcium Level 8.5, Aspartate Amino Transf (AST/SGOT) 40 H, Alanine Aminotransferase (ALT/SGPT) 96 H, Alkaline Phosphatase 79, Total Bilirubin 0.5, Total Protein 6.7, Albumin 3.5 Current Medications Current Medications Al Hydrox/Mg Hydrox/Simethicone (Mylanta) 30 ml Q4HP PRN PO HEARTBURN/ INDIGESTION; Start 06/21/17 at 19:30; Stop 07/21/17 at 19:29 Aripiprazole (AbiLIFY) 10 mg DAILY PO Last administered on 06/23/17 08:01; Start 06/22/17 at 09:00; Stop 06/23/17 at 16:19; Status DC Home Med (Med Rec Complete!) ASDIRECTED XX ; Start 06/21/17 at 17:00; Stop at 17:00; Status DC Ibuprofen (Advil) 400 mg Q6HP PRN PO PAIN Last administered on 06/23/17 18:52 ; Start 06/21/17 at 19:30; Stop 07/21/17 at 19:29 Magnesium Hydroxide (Milk Of Magnesia) 30 ml DAILYPRN PRN PO CONSTIPATION; Start 06/21/17 at 19:30; Stop 07/21/17 at 19:29 Nicotine (Nicoderm Cq 21mg) 1 patch DAILY TD Last administered on 06/24/17 08 :14; Start 06/22/17 at 09:00; Stop 07/22/17 at 08:59 Olanzapine (ZyPREXA) 5 mg Q4HP PRN PO ANXIETY/AGITATION Last administered on 18:52; Start 06/21/17 at 19:30; Stop 07/21/17 at 19:29 Quetiapine Fumarate (SEROquel) 150 mg QHS PO Last administered on 06/21/17 20 :02; Start 06/21/17 at 21:00; Stop 06/22/17 at 13:09; Status DC Quetiapine Fumarate (SEROquel) 200 mg QHS PO Last administered on 06/22/17 20 :27; Start 06/22/17 at 21:00; Stop 06/23/17 at 16:19; Status DC Ramelteon (Rozerem) 8 mg QHS PO Last administered on 06/23/17 20:52; Start 06/23/17 at 21:00; Stop 07/23/17 at 20:59 Trazodone HCl (Desyrel) 50 mg QHSP PRN PO INSOMNIA Last administered on 22:45; Start 06/21/17 at 19:30; Stop 06/22/17 at 13:10; Status DC Allergies Coded Allergies: No Known Allergies (Unverified , 06/07/17) URMILA ARRIOLA MD Jun 24, 2017 11:59
[2017-06-24 12:38] LABS: PLTBLUE- EDTA FREE CALC 220 K/mm3 (172-450)
[2017-06-24 12:40] LABS: BASO # 0.1 10^3/uL (0.0-0.2); BASO % 0.6 % (0.0-1.0); EOS # 0.1 10^3/uL (0.0-0.50); EOS % 1.4 % (0.0-3.0); IMMATURE GRANULOCYTE % 0.3 % (0-0); LYMPH # 2.2 10^3/uL (1.5-6.5); LYMPH % 25.4 % (24.0-44.0); MEAN CORPUSCULAR HEMOGLOBIN 29.6 pg (27.0-33.0); MEAN CORPUSCULAR VOLUME 89.5 fl (80.0-96.0); MONO # 0.6 10^3/uL (0.0-0.8); NEUTROPHILS # 5.7 10^3/uL (1.8-7.7); NEUTROPHILS % 65.3 % (36.0-66.0); WHITE BLOOD COUNT 8.7 10^3/uL (4.0-10.0)
[2017-06-24 13:19] LABS: PLT CLUMPS? POS FLAG; POS COUNT POS FLAG
[2017-06-24 13:20] LABS: ADD MANUAL DIFFER NO; DIFF SLIDE NUMBER 206; SUSPECT SAMPLE POS FLAG
[2017-06-24 13:25] LABS: PLTBLUE- EDTA FREE MACHINE 200 10^3/uL (172-450)
[2017-06-24 18:00] VITALS: BP 137/85
[2017-06-24] MEDS: IBUPROFEN 400 MG TAB PO PRN (19:25)
[2017-06-24] MEDS: OLANZapine 5 MG TAB PO PRN (19:48)
[2017-06-24] MEDS: RAMELTEON 8 MG TAB (ROZEREM) PO SCH (21:16)
[2017-06-25 06:56] VITALS: BP 122/68
[2017-06-25 07:52] LABS: ALBUMIN 3.6 GM/DL (3.2-5.2); ALBUMIN/GLOBULIN RATIO 1.09 (1.00-1.93); ALKALINE PHOSPHATASE 68 U/L (45-117); ALT/SGPT 100 U/L (12-78); ANION GAP 6 MEQ/L (8-16); AST/SGOT 42 U/L (7-37); BILIRUBIN,TOTAL 0.6 MG/DL (0.2-1.0); BLOOD UREA NITROGEN 11 MG/DL (7-18); CALCIUM LEVEL 8.9 MG/DL (8.5-10.1); CARBON DIOXIDE LEVEL 29 MEQ/L (21-32); CHLORIDE LEVEL 107 MEQ/L (98-107); GLUCOSE, FASTING 89 MG/DL (70-105); POTASSIUM SERUM 4.8 MEQ/L (3.5-5.1); SODIUM LEVEL 142 MEQ/L (136-145); TOTAL PROTEIN 6.9 GM/DL (6.4-8.2)
[2017-06-25] MEDS: NICOTINE 21MG/24HR 1 EA TRANSDERMAL TD SCH (08:11)
[2017-06-25] MEDS: IBUPROFEN 400 MG TAB PO PRN (08:12)
--- NOTE | 2017-06-25 12:16 | MHIPNPDOC ---
[facility] Progress Note Progress Note DATE OF SERVICE: 06/25/17 HISTORY: "I had thoughts of killing myself" History of Present Illness HISTORY OF THE PRESENT ILLNESS: As per ED note: "Pt. states he has been feeling depressed and anxious. He reports this morning he had increased anxiety which ended up in a panic attack. He also states that he is experiencing SI. He states he had thoughts of killing self by stabbing himself in the neck. He reports he has been in for about 1.5 years, is either being med boarded out or d/c due to continuous misconduct counseling. He reports he is very absent minded and that he often gets in trouble for misplacing and forgetting items and that because of this his [place] have not been tolerant of him. Pt. reports he recently he was only allowed two days leave after the of his grandfather so he was unable to go home for the . He reports this has contributed to his depression, stating he was very close to his grandfather.He is unable to contract for safety." VITAL SIGNS: See below. NEW TEST RESULTS: N/A CURRENT MEDICATIONS: See below. MENTAL STATUS EXAMINATION: Patient is a 21-year old male, who is cooperative, alert, mildly anxious, dressed in hospital clothes, good eye contact Speech: Is Less pressured, normal tone and normal volume Language skills are fair Thought processes including: Linear/coherent Thought content: anxious thoughts about his liver enzymes elevation Abstract reasoning, and computation: Not assessed at this time. Description of associations: Good Description of abnormal or psychotic thoughts: Denies SI, HI, A/V hallucinations and thought delusions Judgment: Limited Insight: Limited Orientation: oriented x 3 Recent and remote memory: Intact Attention span and concentration: Good Language: Normal Fund of knowledge: Fair Mood: Anxious Affect: Anxious DIAGNOSES: 1. Bipolar disorder 2. Substance use disorder ASSESSMENT: Patient's lab results are back. he is negative for hepatitis ( A, B and C) and he is negative for syphilis. all medications that could be toxic for the liver have been discontinued, including Ibuprofen. He has taken Dextromethorphan as a recreational drug that comes combined with other ingredients in cough syrup, such as Acetaminophen that is highly toxic to the liver. Before his previous admission he was taking bottles of cough syrup. Abilify and Seroquel would cause liver damage (which is unlikely) if they cause remarkable weight gain in the patient and he hasn't gained weight, but it might be that the combination of the liver damage he suffered when he was taking dextromethorphan and the Abilify/Seroquel could have contributed to it. He adamantly denies taking any drug between his last discharge and this admission. The ALT elevation he has, can be considered mild. I have indicated low fat, low cholesterol diet to help his liver. He was told today, the ALT elevation he has is mild, he is not jaundiced, he is not having clinical symptoms, therefore, this will subside. MANAGEMENT PLAN: Will continue with the same treatment plan. No medications because he has abnormal LFT's. TIME SPENT: 20 minutes. Vital Signs Vital Signs Date Time Temp Pulse Resp B/P (MAP) Pulse Ox O2 Delivery O2 Flow Rate FiO2 06/25/17 06:56 97.0 77 14 122/68 (86) 06/23/17 06:48 Room Air 06/21/17 17:42 100 Laboratory Data 24H Labs Laboratory Tests 2 06/24/17 12:11: Immature Granulocyte % (Auto) 0.3H, White Blood Count 8.7, Red Blood Count 5.24 , Hemoglobin 15.5, Hematocrit 46.9, Mean Corpuscular Volume 89.5, Mean Corpuscular Hemoglobin 29.6, Mean Corpuscular Hemoglobin Concent 33.0, Red Cell Distribution Width 13.0, Platelet Count , Neutrophils (%) (Auto) 65.3, Lymphocytes (%) (Auto) 25.4, Monocytes (%) (Auto) 7.0H, Eosinophils (%) (Auto) 1.4, Basophils (%) (Auto) 0.6, Neutrophils # (Auto) 5.7, Lymphocytes # (Auto) 2.2, Monocytes # (Auto) 0.6, Eosinophils # (Auto) 0.1, Basophils # (Auto) 0.1, Immature Granulocyte # (Auto) 0.0, Nucleated Red Blood Cells % (auto) 0.0, Syphilis Serology NONREACTIVE, Hepatitis A IgM Antibody NEGATIVE, Hepatitis B Surface Antigen NEGATIVE, Hepatitis B Core IgM Antibody NEGATIVE, Hepatitis C Antibody Index 0.0 06/25/17 07:16: Anion Gap 6L, Blood Urea Nitrogen 11, Creatinine 0.90, Sodium Level 142, Potassium Level 4.8, Chloride Level 107, Carbon Dioxide Level 29, Calcium Level 8.9, Aspartate Amino Transf (AST/SGOT) 42H, Alanine Aminotransferase (ALT/SGPT) 100H, Alkaline Phosphatase 68, Total Bilirubin 0.6, Total Protein 6.9, Albumin 3.6, Albumin/Globulin Ratio 1.09 CBC/BMP Laboratory Tests 06/24/17 12:11 Red Blood Count 5.24, Mean Corpuscular Volume 89.5, Mean Corpuscular Hemoglobin 29.6, Mean Corpuscular Hemoglobin Concent 33.0, Red Cell Distribution Width 13.0 , Neutrophils (%) (Auto) 65.3, Lymphocytes (%) (Auto) 25.4, Monocytes (%) (Auto ) 7.0 H, Eosinophils (%) (Auto) 1.4, Basophils (%) (Auto) 0.6, Neutrophils # ( Auto) 5.7, Lymphocytes # (Auto) 2.2, Monocytes # (Auto) 0.6, Eosinophils # (Auto ) 0.1, Basophils # (Auto) 0.1 06/25/17 07:16 Calcium Level 8.9, Aspartate Amino Transf (AST/SGOT) 42 H, Alanine Aminotransferase (ALT/SGPT) 100 H, Alkaline Phosphatase 68, Total Bilirubin 0.6 , Total Protein 6.9, Albumin 3.6 Current Medications Current Medications Al Hydrox/Mg Hydrox/Simethicone (Mylanta) 30 ml Q4HP PRN PO HEARTBURN/ INDIGESTION; Start 06/21/17 at 19:30; Stop 07/21/17 at 19:29 Aripiprazole (AbiLIFY) 10 mg DAILY PO Last administered on 06/23/17 08:01; Start 06/22/17 at 09:00; Stop 06/23/17 at 16:19; Status DC Home Med (Med Rec Complete!) ASDIRECTED XX ; Start 06/21/17 at 17:00; Stop at 17:00; Status DC Ibuprofen (Advil) 400 mg Q6HP PRN PO PAIN Last administered on 06/25/17 08:12 ; Start 06/21/17 at 19:30; Stop 07/21/17 at 19:29 Magnesium Hydroxide (Milk Of Magnesia) 30 ml DAILYPRN PRN PO CONSTIPATION; Start 06/21/17 at 19:30; Stop 07/21/17 at 19:29 Nicotine (Nicoderm Cq 21mg) 1 patch DAILY TD Last administered on 06/25/17 08 :11; Start 06/22/17 at 09:00; Stop 07/22/17 at 08:59 Olanzapine (ZyPREXA) 5 mg Q4HP PRN PO ANXIETY/AGITATION Last administered on 19:48; Start 06/21/17 at 19:30; Stop 07/21/17 at 19:29 Quetiapine Fumarate (SEROquel) 150 mg QHS PO Last administered on 06/21/17 20 :02; Start 06/21/17 at 21:00; Stop 06/22/17 at 13:09; Status DC Quetiapine Fumarate (SEROquel) 200 mg QHS PO Last administered on 06/22/17 20 :27; Start 06/22/17 at 21:00; Stop 06/23/17 at 16:19; Status DC Ramelteon (Rozerem) 8 mg QHS PO Last administered on 06/24/17 21:16; Start 06/23/17 at 21:00; Stop 07/23/17 at 20:59 Trazodone HCl (Desyrel) 50 mg QHSP PRN PO INSOMNIA Last administered on 22:45; Start 06/21/17 at 19:30; Stop 06/22/17 at 13:10; Status DC Allergies Coded Allergies: No Known Allergies (Unverified , 06/07/17) URMILA ARRIOLA MD Jun 25, 2017 12:16
[2017-06-25 18:00] VITALS: BP 127/77
[2017-06-25] MEDS: RAMELTEON 8 MG TAB (ROZEREM) PO SCH (21:19)
[2017-06-26 06:48] VITALS: BP 127/70
[2017-06-26 07:17] LABS: ALBUMIN 3.6 GM/DL (3.2-5.2); ALBUMIN/GLOBULIN RATIO 1.06 (1.00-1.93); ALKALINE PHOSPHATASE 82 U/L (45-117); ALT/SGPT 100 U/L (12-78); ANION GAP 4 MEQ/L (8-16); AST/SGOT 43 U/L (7-37); BILIRUBIN,TOTAL 0.5 MG/DL (0.2-1.0); BLOOD UREA NITROGEN 11 MG/DL (7-18); CALCIUM LEVEL 9.1 MG/DL (8.5-10.1); CARBON DIOXIDE LEVEL 31 MEQ/L (21-32); CHLORIDE LEVEL 105 MEQ/L (98-107); CREATININE FOR GFR 0.85 MG/DL (0.70-1.30); GLUCOSE, FASTING 87 MG/DL (70-105); POTASSIUM SERUM 4.5 MEQ/L (3.5-5.1); SODIUM LEVEL 140 MEQ/L (136-145)
[2017-06-26] MEDS: NICOTINE 21MG/24HR 1 EA TRANSDERMAL TD SCH (08:36)
[2017-06-26 18:42] VITALS: BP 122/70
[2017-06-26] MEDS: RAMELTEON 8 MG TAB (ROZEREM) PO SCH (22:26)
[2017-06-27 06:47] VITALS: BP 140/81
[2017-06-27 07:10] LABS: ALBUMIN 3.7 GM/DL (3.2-5.2); ALBUMIN/GLOBULIN RATIO 1.06 (1.00-1.93); ALKALINE PHOSPHATASE 82 U/L (45-117); ALT/SGPT 93 U/L (12-78); ANION GAP 7 MEQ/L (8-16); AST/SGOT 35 U/L (7-37); BILIRUBIN,TOTAL 0.4 MG/DL (0.2-1.0); BLOOD UREA NITROGEN 7 MG/DL (7-18); CALCIUM LEVEL 9.1 MG/DL (8.5-10.1); CARBON DIOXIDE LEVEL 29 MEQ/L (21-32); CHLORIDE LEVEL 105 MEQ/L (98-107); CREATININE FOR GFR 0.91 MG/DL (0.70-1.30); GLUCOSE, FASTING 92 MG/DL (70-105); POTASSIUM SERUM 4.3 MEQ/L (3.5-5.1); SODIUM LEVEL 141 MEQ/L (136-145); TOTAL PROTEIN 7.2 GM/DL (6.4-8.2)
[2017-06-27] MEDS: NICOTINE 21MG/24HR 1 EA TRANSDERMAL TD SCH (09:49)
[2017-06-27 18:15] VITALS: BP 112/72
[2017-06-27] MEDS: RAMELTEON 8 MG TAB (ROZEREM) PO SCH (21:23)
[2017-06-27] MEDS: diphenhydrAMINE 50 MG CAP PO PRN (21:49)
[2017-06-28 06:47] VITALS: BP 93/50
[2017-06-28] MEDS: NICOTINE 21MG/24HR 1 EA TRANSDERMAL TD SCH (08:43)
--- NOTE | 2017-06-28 08:55 | REP ---
RIGHT UPPER QUADRANT ULTRASOUND: Real-time sonographic evaluation of the right upper quadrant performed. The gallbladder demonstrates multiple polyps along the inner wall, the largest is in the region of the neck of the gallbladder and measures 5 mm. No gallstones are seen. There is no gallbladder wall thickening or pericholecystic fluid. There is no intrahepatic or extrahepatic biliary dilatation, common bile duct measuring 3 mm in diameter. The liver and pancreas demonstrate homogeneous echotexture with no gross mass. Right kidney demonstrates no hydronephrosis with normal size at 10.3 cm in length. Visualized abdominal aorta is normal in caliber. IMPRESSION: Multiple small polyps in the gallbladder, largest 5 mm. No gallstones, gallbladder wall thickening, pericholecystic fluid or biliary dilatation. Signed by Michael Moore MD 06/28/2017 05:53 P
[2017-06-28] MEDS ORDERED: BACLOFEN 10 MG TAB PO PRN (14:45)
--- NOTE | 2017-06-28 14:58 | MHIPNPDOC ---
[facility] Progress Note Progress Note DATE OF SERVICE: 06/28/17 HISTORY: Patient describes OK mood in the hospital, states he is a little anxious, endorses having racing thoughts and trouble sleeping. States racing thoughts at night keep him up at night. Denies SI intent and plan. Patient describes his past, describes having episodes in which he would be hyperactive, with racing thoughts, grandiose, engaging in higher risk activities, and not sleeping for over 2 days at a time. Denies AVH. Pt also complains of back pain. Also has vivid dreams every night, sometimes waking him up. VITAL SIGNS: See below. NEW TEST RESULTS: ALT in 90s. Liver US came back showing some biliary tract dilation and wall thickening. CURRENT MEDICATIONS: See below. MENTAL STATUS EXAMINATION: Behavior: cooperative, good eye contact, related Speech: normal RRVT Thought processes including: linear Thought content: appropriate to conversation Judgment: fair Insight: fair Orientation: AAOx3 Mood:OK Affect: mildly anxious, appropriate DIAGNOSES: 1. Bipolar do ASSESSMENT: patient has bipoar disorder, currently with poor sleep and racing thoughts, but otherwise presents seemingly normal. Patient's history of substance abuse seems more experimental than dependence. MANAGEMENT PLAN: - lamictal 25 mg daily for mood stabilization, pt will be titrated outpt - baclofen 10 mg qhs for back pain - prazosin 1 mg qhs for nightmares TIME SPENT: 30 minutes. Vital Signs Vital Signs Date Time Temp Pulse Resp B/P (MAP) Pulse Ox O2 Delivery O2 Flow Rate FiO2 06/28/17 06:47 97.7 68 16 93/50 (64) 06/26/17 06:48 Room Air Current Medications Current Medications Al Hydrox/Mg Hydrox/Simethicone (Mylanta) 30 ml Q4HP PRN PO HEARTBURN/ INDIGESTION; Start 06/21/17 at 19:30; Stop 07/21/17 at 19:29 Aripiprazole (AbiLIFY) 10 mg DAILY PO Last administered on 06/23/17 08:01; Start 06/22/17 at 09:00; Stop 06/23/17 at 16:19; Status DC Diphenhydramine HCl (Benadryl) 50 mg QHSP PRN PO INSOMNIA Last administered on 06/27/17 21:49; Start 12/17/17 at 17:15; Stop 07/27/17 at 17:14 Home Med (Med Rec Complete!) ASDIRECTED XX ; Start 06/21/17 at 17:00; Stop at 17:00; Status DC Ibuprofen (Advil) 400 mg Q6HP PRN PO PAIN Last administered on 06/25/17 08:12 ; Start 06/21/17 at 19:30; Stop 06/25/17 at 12:50; Status DC Magnesium Hydroxide (Milk Of Magnesia) 30 ml DAILYPRN PRN PO CONSTIPATION; Start 06/21/17 at 19:30; Stop 07/21/17 at 19:29 Nicotine (Nicoderm Cq 21mg) 1 patch DAILY TD Last administered on 06/28/17 08 :43; Start 06/22/17 at 09:00; Stop 07/22/17 at 08:59 Olanzapine (ZyPREXA) 5 mg Q4HP PRN PO ANXIETY/AGITATION Last administered on 19:48; Start 06/21/17 at 19:30; Stop 06/25/17 at 12:50; Status DC Quetiapine Fumarate (SEROquel) 150 mg QHS PO Last administered on 06/21/17 20 :02; Start 06/21/17 at 21:00; Stop 06/22/17 at 13:09; Status DC Quetiapine Fumarate (SEROquel) 200 mg QHS PO Last administered on 06/22/17 20 :27; Start 06/22/17 at 21:00; Stop 06/23/17 at 16:19; Status DC Ramelteon (Rozerem) 8 mg QHS PO Last administered on 06/27/17 21:23; Start 06/23/17 at 21:00; Stop 07/23/17 at 20:59 Trazodone HCl (Desyrel) 50 mg QHSP PRN PO INSOMNIA Last administered on 22:45; Start 06/21/17 at 19:30; Stop 06/22/17 at 13:10; Status DC Allergies Coded Allergies: No Known Allergies (Unverified , 06/07/17) TATYANA REYES MD Jun 28, 2017 14:57
[2017-06-28] MEDS ORDERED: lamoTRIgine 25 MG TAB PO ONE (15:00)
[2017-06-28 18:00] VITALS: BP 148/89
[2017-06-28] MEDS ORDERED: PRAZOSIN 1 MG CAP PO SCH (21:00)
[2017-06-28] MEDS: diphenhydrAMINE 50 MG CAP PO PRN (22:26)
[2017-06-29 06:31] VITALS: BP 118/59
[2017-06-29] MEDS: NICOTINE 21MG/24HR 1 EA TRANSDERMAL TD SCH (08:24)
[2017-06-29] MEDS: BACLOFEN 10 MG TAB PO PRN ×2 (12:07→18:21)
--- NOTE | 2017-06-29 12:10 | MHIPNPDOC ---
[facility] Progress Note Progress Note DATE OF SERVICE: 06/29/17 HISTORY: Patient reports staying up for 1.5 hours with "racing thoughts" before falling asleep. Upon further questioning, unclear if racing thoughts is due to ana maría or more of anxious ruminations. Patient wakes up after 3 hours with dreams as well. Patient states that throughout the day he has "racing thoughts" but he is able to keep his behavior in line. Denies excessive risk taking behaviors, denies grandiosity, has some depression, did not endorse SI intent and plan. VITAL SIGNS: See below. NEW TEST RESULTS: na CURRENT MEDICATIONS: See below. MENTAL STATUS EXAMINATION: Behavior: cooperative, good eye contact, related Speech: normal RRVT Thought processes including: linear Thought content: appropriate to conversation Judgment: fair Insight: fair Orientation: AAOx3 Mood: a little depressed Affect: mildly anxious, appropriate DIAGNOSES: 1. Bipolar do ASSESSMENT: patient has bipolar disorder, currently with poor sleep and excessive thoughts, but otherwise presents seemingly normal. Patient's history of substance abuse seems more experimental than dependence. Patient likely has hypomania right now MANAGEMENT PLAN: - lamictal 25 mg daily for mood stabilization, pt will be titrated outpt - baclofen 20 mg qhs for back pain - prazosin 2 mg qhs for nightmares - Begin latuda 20 mg qpm for bipolar, as lamictal takes very long to work TIME SPENT: 25 minutes. TIME SPENT: 25 minutes. Vital Signs Vital Signs Date Time Temp Pulse Resp B/P (MAP) Pulse Ox O2 Delivery O2 Flow Rate FiO2 06/29/17 06:31 98.0 68 16 118/59 (78) 06/26/17 06:48 Room Air Current Medications Current Medications Al Hydrox/Mg Hydrox/Simethicone (Mylanta) 30 ml Q4HP PRN PO HEARTBURN/ INDIGESTION; Start 06/21/17 at 19:30; Stop 07/21/17 at 19:29 Aripiprazole (AbiLIFY) 10 mg DAILY PO Last administered on 06/23/17 08:01; Start 06/22/17 at 09:00; Stop 06/23/17 at 16:19; Status DC Baclofen (Lioresal) 10 mg QHSP PRN PO BACK PAIN Last administered on 20:03; Start 06/28/17 at 14:45; Stop 06/29/17 at 12:00; Status DC Baclofen (Lioresal) 20 mg BIDP PRN PO BACK PAIN; Start 06/29/17 at 12:00; Stop 07/28/17 at 14:44; Status UNV Diphenhydramine HCl (Benadryl) 50 mg QHSP PRN PO INSOMNIA Last administered on 06/28/17 22:26; Start 06/27/17 at 17:15; Stop 07/27/17 at 17:14 Home Med (Med Rec Complete!) ASDIRECTED XX ; Start 06/21/17 at 17:00; Stop at 17:00; Status DC Ibuprofen (Advil) 400 mg Q6HP PRN PO PAIN Last administered on 06/25/17 08:12 ; Start 06/21/17 at 19:30; Stop 06/25/17 at 12:50; Status DC Ibuprofen (Advil) 600 mg Q6HP PRN PO MODERATE PAIN (PS 5-7); Start 06/29/17 at 12:00; Stop 07/29/17 at 11:59; Status UNV Magnesium Hydroxide (Milk Of Magnesia) 30 ml DAILYPRN PRN PO CONSTIPATION; Start 06/21/17 at 19:30; Stop 07/21/17 at 19:29 Nicotine (Nicoderm Cq 21mg) 1 patch DAILY TD Last administered on 06/29/17 08 :24; Start 06/22/17 at 09:00; Stop 07/22/17 at 08:59 Olanzapine (ZyPREXA) 5 mg Q4HP PRN PO ANXIETY/AGITATION Last administered on 19:48; Start 06/21/17 at 19:30; Stop 06/25/17 at 12:50; Status DC Prazosin HCl (Minipress) 1 mg QHS PO Last administered on 06/28/17 22:27; Start 06/28/17 at 21:00; Stop 06/29/17 at 11:02; Status DC Prazosin HCl (Minipress) 2 mg QHS PO ; Start 06/29/17 at 21:00; Stop 07/29/17 at 20:59 Quetiapine Fumarate (SEROquel) 150 mg QHS PO Last administered on 06/21/17 20 :02; Start 06/21/17 at 21:00; Stop 06/22/17 at 13:09; Status DC Quetiapine Fumarate (SEROquel) 200 mg QHS PO Last administered on 06/22/17 20 :27; Start 06/22/17 at 21:00; Stop 06/23/17 at 16:19; Status DC Ramelteon (Rozerem) 8 mg QHS PO Last administered on 06/27/17 21:23; Start 06/23/17 at 21:00; Stop 06/28/17 at 14:48; Status DC Trazodone HCl (Desyrel) 50 mg QHSP PRN PO INSOMNIA Last administered on 22:45; Start 06/21/17 at 19:30; Stop 06/22/17 at 13:10; Status DC Allergies Coded Allergies: No Known Allergies (Unverified , 06/07/17) TATYANA REYES MD Jun 29, 2017 12:10
[2017-06-29] MEDS ORDERED: lamoTRIgine 25 MG TAB PO ONE (12:15)
[2017-06-29] MEDS: IBUPROFEN 600 MG TAB PO PRN ×2 (15:58→21:51)
[2017-06-29 18:00] VITALS: BP 127/68
[2017-06-29] MEDS ORDERED: LURASIDONE 20 MG TAB (LATUDA) PO SCH (18:00)
[2017-06-29] MEDS ORDERED: PRAZOSIN 1 MG CAP PO SCH (21:00)
[2017-06-29] MEDS: diphenhydrAMINE 50 MG CAP PO PRN (21:50)
[2017-06-30 07:04] VITALS: BP 131/60
[2017-06-30] MEDS: lamoTRIgine 25 MG TAB PO SCH (08:19)
[2017-06-30] MEDS: NICOTINE 21MG/24HR 1 EA TRANSDERMAL TD SCH (08:20)
[2017-06-30] MEDS: BACLOFEN 10 MG TAB PO PRN ×2 (13:16→17:59)
--- NOTE | 2017-06-30 17:23 | MHIPNPDOC ---
[facility] Progress Note Progress Note DATE OF SERVICE: 06/30/17 HISTORY: Patient reports taking about 45 minutes to fall asleep, still reporting racing thoughts. However, he states that the intensity of the racing thoughts has gone down with the latuda. Patient did not endorse depression, SI intent and plan, and AVH. VITAL SIGNS: See below. NEW TEST RESULTS: NA CURRENT MEDICATIONS: See below. MENTAL STATUS EXAMINATION: Behavior: cooperative, good eye contact, related Speech: normal RRVT Thought processes including: linear Thought content: appropriate to conversation Judgment: fair Insight: fair Orientation: AAOx3 Mood: a little depressed Affect: mildly anxious, appropriate DIAGNOSES: 1. Bipolar do ASSESSMENT: patient has bipolar disorder per his history, currently with poor sleep and excessive thoughts, but otherwise presents seemingly normal. Patient' s history of substance abuse seems more experimental than dependence. Patient likely has hypomania right now, if anything, as he is not overtly manic. MANAGEMENT PLAN: - lamictal 25 mg daily for mood stabilization, pt will be titrated outpt - baclofen 20 mg qhs for back pain - Increased prazosin to 3 mg qhs for vivid dreams - Increased latuda to 40 mg qpm for bipolar, as lamictal takes very long to work TIME SPENT: 25 minutes. TIME SPENT: 25 minutes. Vital Signs Vital Signs Date Time Temp Pulse Resp B/P (MAP) Pulse Ox O2 Delivery O2 Flow Rate FiO2 06/30/17 07:04 97.2 69 14 131/60 (83) 06/26/17 06:48 Room Air Current Medications Current Medications Al Hydrox/Mg Hydrox/Simethicone (Mylanta) 30 ml Q4HP PRN PO HEARTBURN/ INDIGESTION; Start 06/21/17 at 19:30; Stop 07/21/17 at 19:29 Aripiprazole (AbiLIFY) 10 mg DAILY PO Last administered on 06/23/17 08:01; Start 06/22/17 at 09:00; Stop 06/23/17 at 16:19; Status DC Baclofen (Lioresal) 10 mg QHSP PRN PO BACK PAIN Last administered on 20:03; Start 06/28/17 at 14:45; Stop 06/29/17 at 12:00; Status DC Baclofen (Lioresal) 20 mg BIDP PRN PO BACK PAIN Last administered on 13:16; Start 06/29/17 at 12:00; Stop 07/28/17 at 14:44 Diphenhydramine HCl (Benadryl) 50 mg QHSP PRN PO INSOMNIA Last administered on 06/29/17 21:50; Start 06/27/17 at 17:15; Stop 07/27/17 at 17:14 Home Med (Med Rec Complete!) ASDIRECTED XX ; Start 06/21/17 at 17:00; Stop at 17:00; Status DC Ibuprofen (Advil) 400 mg Q6HP PRN PO PAIN Last administered on 06/25/17 08:12 ; Start 06/21/17 at 19:30; Stop 06/25/17 at 12:50; Status DC Ibuprofen (Advil) 600 mg Q6HP PRN PO MODERATE PAIN (PS 5-7) Last administered on 06/29/17 21:51; Start 06/29/17 at 12:00; Stop 07/29/17 at 11:59 Lamotrigine (LaMICtal) 25 mg QAM PO Last administered on 06/30/17 08:19; Start 06/30/17 at 09:00; Stop 07/30/17 at 08:59 Lurasidone HCl (Latuda) 20 mg DAILY@18 PO Last administered on 06/29/17 18:19 ; Start 06/29/17 at 18:00; Stop 06/30/17 at 17:20; Status DC Lurasidone HCl (Latuda) 40 mg DAILY@18 PO ; Start 06/30/17 at 18:00; Stop 07/30 at 17:59; Status UNV Magnesium Hydroxide (Milk Of Magnesia) 30 ml DAILYPRN PRN PO CONSTIPATION; Start 06/21/17 at 19:30; Stop 07/21/17 at 19:29 Nicotine (Nicoderm Cq 21mg) 1 patch DAILY TD Last administered on 06/30/17 08 :20; Start 06/22/17 at 09:00; Stop 07/22/17 at 08:59 Olanzapine (ZyPREXA) 5 mg Q4HP PRN PO ANXIETY/AGITATION Last administered on 19:48; Start 06/21/17 at 19:30; Stop 06/25/17 at 12:50; Status DC Prazosin HCl (Minipress) 1 mg QHS PO Last administered on 06/28/17 22:27; Start 06/28/17 at 21:00; Stop 06/29/17 at 11:02; Status DC Prazosin HCl (Minipress) 2 mg QHS PO Last administered on 06/29/17 20:03; Start 06/29/17 at 21:00; Stop 06/30/17 at 17:20; Status DC Prazosin HCl (Minipress) 3 mg QHS PO ; Start 06/30/17 at 21:00; Stop 07/30/17 at 20:59; Status UNV Quetiapine Fumarate (SEROquel) 150 mg QHS PO Last administered on 06/21/17 20 :02; Start 06/21/17 at 21:00; Stop 06/22/17 at 13:09; Status DC Quetiapine Fumarate (SEROquel) 200 mg QHS PO Last administered on 06/22/17 20 :27; Start 06/22/17 at 21:00; Stop 06/23/17 at 16:19; Status DC Ramelteon (Rozerem) 8 mg QHS PO Last administered on 06/27/17 21:23; Start 06/23/17 at 21:00; Stop 06/28/17 at 14:48; Status DC Trazodone HCl (Desyrel) 50 mg QHSP PRN PO INSOMNIA Last administered on 22:45; Start 06/21/17 at 19:30; Stop 06/22/17 at 13:10; Status DC Trazodone HCl (Desyrel) 100 mg QHS PO ; Start 06/30/17 at 21:00; Stop 07/30/17 at 20:59; Status UNV Allergies Coded Allergies: No Known Allergies (Unverified , 06/07/17) TATYANA REYES MD Jun 30, 2017 17:23
[2017-06-30 18:00] VITALS: BP 149/78
[2017-06-30] MEDS ORDERED: LURASIDONE HCL 40 MG TAB (LATUDA) PO SCH (18:00)
[2017-06-30 20:13] VITALS: BP 126/81
[2017-06-30] MEDS: IBUPROFEN 600 MG TAB PO PRN (20:13)
[2017-06-30] MEDS ORDERED: traZODone 100 MG TAB PO SCH (21:00)
[2017-06-30] MEDS ORDERED: PRAZOSIN 1 MG CAP PO SCH (21:00)
[2017-06-30] MEDS: diphenhydrAMINE 50 MG CAP PO PRN (22:26)
[2017-07-01 06:59] VITALS: BP 103/55
[2017-07-01] MEDS ORDERED: LAMI25TA PO (09:01)
[2017-07-01] MEDS ORDERED: LATU40TA PO (09:01)
[2017-07-01] MEDS ORDERED: NICO21PAT TD (09:01)
[2017-07-01] MEDS ORDERED: TRAZ10TA PO (09:01)
[2017-07-01] MEDS ORDERED: BACL10TA2 PO (09:01)
[2017-07-01] MEDS ORDERED: DIPH50CA PO (09:01)
[2017-07-01] MEDS ORDERED: MINI1CAP PO (09:01)
[2017-07-01] MEDS: lamoTRIgine 25 MG TAB PO SCH (09:14)
[2017-07-01] MEDS: BACLOFEN 10 MG TAB PO PRN (09:14)
[2017-07-01] MEDS: NICOTINE 21MG/24HR 1 EA TRANSDERMAL TD SCH (09:14)
--- NOTE | 2017-07-01 18:49 | MHDSPDOC ---
[facility] Discharge Summary Discharge Summary DATE OF ADMISSION: Jun 21, 2017 at 13:51 DATE OF DISCHARGE: Jul 01, 2017 at 11:30 DISCHARGE DIAGNOSES: 1. bipolar do type II 2. r/o ADHD REASON FOR ADMISSION: As per ED note 06/21/17: " Pt. states he has been feeling depressed and anxious. He reports this morning he had increased anxiety which ended up in a panic attack. He also states that he is experiencing SI. He states he had thoughts of killing self by stabbing himself in the neck. He reports he has been in for about 1.5 years, is either being med boarded out or d/c due to continuous misconduct counseling. He reports he is very absent minded and that he often gets in trouble for misplacing and forgetting items and that because of this his [employer] have not been tolerant of him. Pt. reports he recently he was only allowed two days leave after the of his grandfather so he was unable to go home for the . He reports this has contributed to his depression, stating he was very close to his grandfather.He is unable to contract for safety. " Upon later interview, patient also described episodes in the past in which he would be hyperactive, with racing thoughts, mildly grandiose (building a new board game) but nothing bizarre, engaging in higher risk activities (drugs), and not sleeping for over 2 days at a time. Denied ever having AVH. Patient states in the past he was diagnosed with ADHD, but he is uncertain if it were the correct diagnosis. Reports having good grades in school, A's in high school , though was not on any psychiatric medications then. CONSULTANTS INVOLVED: na TREATMENT AND PROGRESS ON THE UNIT : Patient endorsed having racing thoughts and trouble sleeping while in the hospital. Initially he was put on zyprexa and seroquel (by another provider), but patient reports weight gain and still had poor sleep. Endorsed some depression and anxiety throughout the day, denied SI intent and plan throughout. His racing thoughts diminished and sleep improved with latuda, titrated to 40 mg qhs. He was also began on lamictal 25 mg daily, so that if the latuda was not enough to cover his symptoms or was giving him side effects, then he would be further titrated up on lamictal outpatient. Patient never appeared grossly manic, though he did have mildly rapid speech and hyperverbality, and reported racing thoughts. DISCHARGE ASSESSMENT: By discharge patient was euthymic, less anxious, sleeping adequately, without gross signs of ana maría. Patient still stated he had some racing thoughts. Patient likely has bipolar disorder type II per his history and per history reported from prior psychiatric hospitalizations. Patient's history of substance abuse seems more experimental than dependence. MENTAL STATUS EXAMINATION ON DISCHARGE: Behavior: cooperative, good eye contact, related Speech: normal RRVT Thought processes including: linear Thought content: appropriate to conversation Judgment: fair Insight: fair Orientation: AAOx3 Mood: OK Affect: neutral, appropriate MEDICATIONS ON DISCHARGE: - lamictal 25 mg daily for mood stabilization, pt will be titrated outpt - baclofen 20 mg qhs for back pain - prazosin to 3 mg qhs for vivid dreams - latuda to 40 mg qpm for bipolar, as lamictal takes very long to work PLAN/FOLLOWUP ARRANGEMENTS: Jeromy Dean The amount of time spent in the coordination of care for this patient was approximately 30 minutes. Vital Signs/I&Os Vital Signs Date Time Temp Pulse Resp B/P (MAP) Pulse Ox O2 Delivery O2 Flow Rate FiO2 07/01/17 06:59 98.1 83 14 103/55 (71) 06/26/17 06:48 Room Air Medications Scheduled Lamotrigine (Lamictal) 25 Mg Tab, 25 MG PO QAM for SEE LABEL COMMENTS for 7 Days , #7 Lurasidone Hydrochloride (Latuda) 40 Mg Tab, 40 MG PO DAILY@18 for SEE LABEL COMMENTS for 7 Days, #7 Nicotine (Nicotine Transdermal Syst) 21 Mg/24 Hr Dis, 1 PATCH TD DAILY for SEE LABEL COMMENTS for 7 Days, #7 Prazosin HCl (Minipress) 1 Mg Cap, 3 MG PO QHS for SEE LABEL COMMENTS for 7 Days , #21 Trazodone HCl (Trazodone HCl) 100 Mg Tab, 100 MG PO QHS for INSOMNIA for 7 Days , #7 Scheduled PRN Baclofen (Baclofen) 10 Mg Tab, 20 MG PO BIDP PRN for BACK PAIN for 7 Days, #14 Diphenhydramine HCl (Diphenhydramine HCl) 50 Mg Cap, 50 MG PO QHSP PRN for INSOMNIA for 7 Days, #7 Allergies Coded Allergies: No Known Allergies (Unverified , 06/07/17) TATYANA REYES MD Jul 01, 2017 18:49
== END 2017-07-01 11:30 | disposition home or self-care (01) | DRG 885 ==
LOC: M ED 09:16 → M ED INP 13:51 → M PSY 17:50
PROVIDERS: ADMIT Psychiatry & Neurology Psychiatry; ATTEND Psychiatry & Neurology Psychiatry
DX: F31.81 Bipolar II disorder (principal); F90.9 Attention-deficit hyperactivity disorder, unspecified type; Z79.899 Other long term (current) drug therapy; F17.210 Nicotine dependence, cigarettes, uncomplicated

== ENCOUNTER 2017-07-30 15:22 | Inpatient (IN) | payer OTHER ==
[2017-07-30 17:27] LABS: HEMATOCRIT 44.9 % (42.0-52.0); MEAN CORPUSCULAR HEMOGLOBIN 29.4 pg (27.0-33.0); MEAN CORPUSCULAR HGB CONC 33.4 g/dl (32.0-36.5); RED CELL DISTRIBUTION WIDTH 12.6 % (11.5-14.5); WHITE BLOOD COUNT 8.7 10^3/uL (4.0-10.0)
[2017-07-30 17:33] LABS: AMPHETAMINES LEVEL URINE NEGATIVE (NEGATIVE); BARBITURATES URINE NEGATIVE (NEGATIVE); BENZODIAZEPINES URINE NEGATIVE (NEGATIVE); CANNABINOIDS URINE POSITIVE (NEGATIVE); COCAINE METABOLITE URINE NEGATIVE (NEGATIVE); METHADONE URINE NEGATIVE (NEGATIVE); OPIATES URINE NEGATIVE (NEGATIVE); PHENCYCLIDINE URINE NEGATIVE (NEGATIVE)
[2017-07-30 17:44] LABS: ALBUMIN/GLOBULIN RATIO 1.25 (1.00-1.93); ALKALINE PHOSPHATASE 72 U/L (45-117); ALT/SGPT 21 U/L (12-78); ANION GAP 6 MEQ/L (8-16); AST/SGOT 12 U/L (7-37); BILIRUBIN,DIRECT 0.2 MG/DL (0.0-0.2); BILIRUBIN,TOTAL 0.7 MG/DL (0.2-1.0); BLOOD UREA NITROGEN 9 MG/DL (7-18); CALCIUM LEVEL 8.8 MG/DL (8.5-10.1); CARBON DIOXIDE LEVEL 30 MEQ/L (21-32); CHLORIDE LEVEL 106 MEQ/L (98-107); CREATININE FOR GFR 0.91 MG/DL (0.70-1.30); ETHYL ALCOHOL (ETHANOL) 0.005 % (0.000-0.010); GLUCOSE, FASTING 89 MG/DL (70-105); SALICYLATE LEVEL < 1.7 MG/DL (5.0-30.0); SODIUM LEVEL 142 MEQ/L (136-145); TOTAL PROTEIN 7.2 GM/DL (6.4-8.2)
[2017-07-30 17:47] LABS: POS COUNT POS FLAG
[2017-07-30 17:49] LABS: ACETAMINOPHEN LEVEL < 2.0 UG/ML (10.0-30.0)
[2017-07-30] MEDS ORDERED: MAALOX 30 ML SUSP *UDC PO (21:00)
[2017-07-30] MEDS ORDERED: MOM 30ML SUSPENSION UDC PO (21:00)
[2017-07-30] MEDS: traZODone 50 MG TAB PO (21:02)
[2017-07-31] MEDS: NICOTINE 21MG/24HR 1 EA TRANSDERMAL TD ×2 (09:00→10:52)
[2017-07-31] MEDS ORDERED: BACLOFEN 10 MG TAB PO (11:00)
[2017-07-31] MEDS: LURASIDONE HCL 40 MG TAB (LATUDA) PO (12:41)
[2017-07-31] MEDS: lamoTRIgine 25 MG TAB PO (12:41)
[2017-07-31] MEDS: traZODone 100 MG TAB PO (21:25)
[2017-08-01] MEDS: lamoTRIgine 25 MG TAB PO (09:51)
[2017-08-01] MEDS: NICOTINE 21MG/24HR 1 EA TRANSDERMAL TD (09:51)
[2017-08-01] MEDS: LURASIDONE HCL 40 MG TAB (LATUDA) PO (09:51)
[2017-08-01] MEDS: traZODone 100 MG TAB PO (20:51)
[2017-08-02] MEDS: NICOTINE 21MG/24HR 1 EA TRANSDERMAL TD (08:57)
[2017-08-02] MEDS: lamoTRIgine 25 MG TAB PO (08:57)
[2017-08-02] MEDS: LURASIDONE HCL 40 MG TAB (LATUDA) PO (08:57)
[2017-08-03] MEDS: lamoTRIgine 25 MG TAB PO (09:08)
[2017-08-03] MEDS: LURASIDONE HCL 40 MG TAB (LATUDA) PO (09:08)
[2017-08-03] MEDS: NICOTINE 21MG/24HR 1 EA TRANSDERMAL TD (09:08)
[2017-08-03] MEDS: ACETAMINOPHEN TAB 650MG DOSE (2X325MG) PO (21:45)
[2017-08-03] MEDS: traZODone 100 MG TAB PO ×2 (21:45)
[2017-08-04] MEDS: lamoTRIgine 25 MG TAB PO (09:32)
[2017-08-04] MEDS: NICOTINE 21MG/24HR 1 EA TRANSDERMAL TD (09:32)
[2017-08-04] MEDS: LURASIDONE HCL 40 MG TAB (LATUDA) PO (09:32)
== END 2017-08-04 10:50 | disposition home or self-care (01) | DRG 885 ==
LOC: M ED 15:22 → M ED INP 18:58 → M PSY 19:58
DX: F31.81 Bipolar II disorder (principal); F17.210 Nicotine dependence, cigarettes, uncomplicated; Z79.899 Other long term (current) drug therapy